=== PATIENT | male | born 1985 | race Caucasian/White ===

== ENCOUNTER 2019-01-11 20:42 | Emergency (ER) | payer OTHER ==
[~2019-01-11] VITALS: Ht 167.6 cm; Wt 59.1 kg
[2019-01-11 20:56] VITALS: Ht 167.6 cm; Wt 59.1 kg
[2019-01-11] MEDS ORDERED: TORADOL10 MG PO (22:48)
[2019-01-11] MEDS ORDERED: ROBAXIN500 MG PO (22:48)
[2019-01-11 23:13] VITALS: BP 116/74
== END 2019-01-11 23:14 | disposition home or self-care (01) ==
LOC: D.ER 20:42
DX: M94.0 Chondrocostal junction syndrome [Tietze] (principal)